=== PATIENT | male | born 1945 | race Caucasian/White ===

== ENCOUNTER 2017-01-17 15:45 | Emergency (ER) | payer OTHER, BC, MEDICARE ==
--- NOTE | 2017-01-21 17:07 | ER ---
ADMIT: 01/17/2017 RM/LOC: ER [facility] MR#: [id number] [address] [place] [address] Emergency Room Report SEX: M AGE: 71 : 1945 DATE: 01/17/2017 HISTORY OF PRESENT ILLNESS: A 71-year-old white [facility]J tube being out of place. Flat plate with Gastrografin shows good placement. At this time, [facility], and they can follow up as needed. CONDITION ON DISCHARGE: Good. Sagar Huff MD/ [place] JOB #: [id number] CC: Sagar Huff MD, Attending Physician [facility] Physician, Family Physician
== END 2017-01-17 17:20 | disposition home or self-care (01) ==
LOC: ER 15:45
DX: Z43.1 Encounter for attention to gastrostomy (principal); Z86.73 Personal history of transient ischemic attack (TIA), and cerebral infarction without residual deficits; Z79.899 Other long term (current) drug therapy